=== PATIENT | female | born 1980 | race Caucasian/White ===

== ENCOUNTER 2016-10-01 23:19 | Emergency (ER) | payer OTHER ==
[~2016-10-01] VITALS: Ht 172.7 cm; Wt 72.6 kg
--- NOTE | 2016-10-01 23:33 | NUR ---
HOME MEDS PT DENIES ANY HOME MEDS ON A DAILY BASIS
[2016-10-01] MEDS ORDERED: ZOFRAN IV STA (23:44)
[2016-10-01] MEDS ORDERED: LOMOTIL PO STA (23:44)
[2016-10-01] MEDS ORDERED: NS 1000ML 1,000 ML ONE ×2 (23:47)
[2016-10-01] MEDS ORDERED: ZOFRAN ONE ×2 (23:47)
[2016-10-01] MEDS ORDERED: LOMOTIL ONE ×2 (23:48)
--- NOTE | 2016-10-01 23:48 | ER.PDOC ---
General Chief Complaint: Abdomen Pain Stated Complaint: DIARRHEA, ABD PAIN Time seen by MD: 23:45 Source: patient Exam Limitations: no limitations History of Present Illness Initial Comments Nausea and diarrhea today Severity/Quality: severe Associated Symptoms (diarrhea): copious, watery Allergies: Coded Allergies: No Known Allergies (Unverified , 10/01/16) Home Meds No Active Prescriptions or Reported Meds Vital Signs First Vital Signs Date Time Temp Pulse Resp B/P Pulse Ox O2 Delivery O2 Flow Rate FiO2 10/01/16 23:25 98.6 90 12 99 10/01/16 23:31 108/60 Last Vital Signs Date Time Temp Pulse Resp B/P Pulse Ox O2 Delivery O2 Flow Rate FiO2 10/02/16 01:47 82 16 128/61 98 10/01/16 23:31 98.6 Past Medical History Medical History: no pertinent history Surgical History: tonsillectomy LMP (females 10-50): this week Social History Smoking: non-smoker Alcohol Use: none Drug Use: none Constitutional: no symptoms reported EENTM: no symptoms reported Respiratory: no symptoms reported Cardiovascular: no symptoms reported Gastrointestinal: see HPI Genitourinary: no symptoms reported Musculoskeletal: no symptoms reported Skin: no symptoms reported All Other Systems: Reviewed and Negative Physical Exam General Appearance: No Apparent Distress, WD/WN HEENT: PERRL/EOMI, Normal ENT Inspection, TMs Normal, Pharynx Normal Neck: Non-Tender, Full Range of Motion, Supple, Normal Inspection Respiratory: chest non-tender, lungs clear, normal breath sounds, no respiratory distress, no accessory muscle use Cardiovascular: Normal Peripheral Pulses, Regular Rate, Rhythm, No Edema, No Gallop, No JVD, No Murmur Gastrointestinal: Normal Bowel Sounds, Non Tender, Soft Back: Normal Inspection, No CVA Tenderness, No Vertebral Tenderness Extremities: Normal Range of Motion, Non-Tender, Normal Inspection, No Pedal Edema, No Calf Tenderness, Normal Capillary Refill, Pelvis Stable 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0) Neutrophils (%) (Auto) 80.0% (41.0-85.0) Lymphocytes (%) (Auto) 13.3% (24.0-44.0) Monocytes (%) (Auto) 5.7% (5.0-12.0) Neutrophils # (Auto) 5.310^3/uL (1.8-7.7) Lymphocytes # (Auto) 0.910^3/uL (1.0-4.8) Monocytes # (Auto) 0.410^3/uL (0.3-0.8) Absolute Immature Granulocyte (auto 0.0110^3 u/L (0-2) Eosinophils % 0.5% (0.0-5.0) Basophils % 0.3% (0.0-0.2) Basophils # 0.010^3/uL (0.0-0.1) Eosinophil Count 0.010^3/uL (0.0-0.2) Sodium Level 140mmol/L (132-145) Potassium Level 3.4mmol/L (3.6-5.2) Chloride Level 106.0mmol/L (96-109) Carbon Dioxide Level 21.5mmol/L (20.0-32) Anion Gap 15.9 Blood Urea Nitrogen 7mg/dL (7-18) Creatinine 0.69mg/dL (0.59-1.40) Estimat Glomerular Filtration Rate >60 BUN/Creatinine Ratio 10.0 Glucose Level 92mg/dL (70-110) Calculated Osmolality 287.5 Calcium Level 8.3mg/dL (8.4-10.5) Total Bilirubin 0.6mg/dL (0.2-1.0) Aspartate Amino Transf (AST/SGOT) 35U/L (0-35) Alanine Aminotransferase (ALT/SGPT) 43U/L (12-78) Alkaline Phosphatase 92U/L (50-136) Total Protein 7.4g/dL (6.4-8.2) Albumin 3.7g/dL (3.4-5.0) Globulin 3.7 Serum HCG, Qualitative Negative (NEGATIVE) Percent Immature Gran (Cell Imm) 0.20% (0.00-0.50) Stool for White Cells None seen (NS) Clostridium difficile Screen Negative Clostridium Difficile Toxin A & B Negative Administered Medications Medications (Trade) Dose Ordered Sig/Caterina Route PRN Reason Start Time Stop Time Status Last Admin Dose Admin Ondansetron HCl (Zofran) 4 mg STAT STAT IV 10/01/16 23:44 10/01/16 23:46 DC 10/02/16 00:42 Diphenoxylate HCl/ Atropine (Lomotil) 1 each STAT STAT PO 10/01/16 23:44 10/01/16 23:46 DC 10/02/16 00:49 Ketorolac Tromethamine (Toradol) 30 mg STAT STAT IV 10/02/16 01:42 10/02/16 01:43 DC 10/02/16 01:46 Progress Progress Feeling better. Departure Time of Disposition: 02:13 Disposition: 01 HOME, SELF-CARE Impression: Primary Impression: Acute diarrhea Condition: Stable Referrals: VEENA LEZAMA PA-C (PCP) PRIMARY CARE PROVIDER Additional Instructions: Lomotil Push fluids Rest home today and return to work on 10/03/16 F/U with your PCP in 2-3 days Scripts No Active Prescriptions or Reported Meds KORY BACH MD Oct 01, 2016 23:48
[2016-10-02] MEDS ORDERED: MISC MC ONE
--- NOTE | 2016-10-02 00:07 | NUR ---
UNSUCCESSFUL IV ATTEMPT X 2
--- NOTE | 2016-10-02 00:30 | NUR ---
IV ATTEMPT MELI, MINE SUP, WITH PT FOR IV AND LAB COLLECTION, PT HAS BEEN TO THE BATHROOM MULTIPLE TIMES FOR DIARRHEA,
--- NOTE | 2016-10-02 00:40 | NUR ---
NS ONE LITER IV INFUSING AT 500CC/HR
[2016-10-02 01:06] LABS: BASOPHIL % 0.3 % (0.0-0.2); EOSINOPHIL % 0.5 % (0.0-5.0); HEMATOCRIT 42.9 % (36.0-46.0); HEMOGLOBIN 14.8 g/dL (12.0-15.0); LYMPHOCYTES # 0.9 10^3/uL (1.0-4.8); LYMPHOCYTES % 13.3 % (24.0-44.0); MEAN CELL HGB 30.8 pg (26-34); MEAN CELL HGB CONCENTRATION 34.5 g/dL (33-37); MEAN CORP VOLUME 89.4 fL (78-100); MEAN PLATELET VOLUME 10.4 fL (7.8-11.0); MONOCYTES # 0.4 10^3/uL (0.3-0.8); MONOCYTES % 5.7 % (5.0-12.0); NEUTROPHIL # 5.3 10^3/uL (1.8-7.7); RED BLOOD CELL 4.8 10^6/uL (4.00-5.20); RED CELL DISTRIBUTION WIDTH 12.3 % (11.5-14.5); WHITE BLOOD CELL 6.6 10^3/uL (4.5-11.0)
[2016-10-02 01:17] LABS: ALANINE AMINOTRANSFERASE 43 U/L (12-78); ALBUMIN 3.7 g/dL (3.4-5.0); ALKALINE PHOSPHATASE 92 U/L (50-136); ANION GAP 15.9; ASPARTATE AMINO TRANSFERASE 35 U/L (0-35); CALCIUM 8.3 mg/dL (8.4-10.5); CARBON DIOXIDE 21.5 mmol/L (20.0-32); CREATININE SERUM 0.69 mg/dL (0.59-1.40); GLUCOSE 92 mg/dL (70-110)
[2016-10-02] MEDS ORDERED: TORADOL IV STA (01:42)
[2016-10-02] MEDS ORDERED: TORADOL ONE ×2 (01:42)
--- NOTE | 2016-10-02 01:47 | PRM.ACF1 ---
Admission Criteria Forms VOMITING Clinical Indications for Admission to Inpatient Care ( Place 'X' for any and all applicable criteria): Admission is indicated for ANY ONE of the following(1)(2)(3): [X]I. Inpatient admission required rather than observation care because of ANY ONE of the following: [ ]i) Hemodynamic instability that is severe or persistent [X]ii) Vomiting that is severe or persistent [ ]iii) Severe electrolyte abnormalities requiring inpatient care [ ]iv) Severe pain requiring acute inpatient management [ ]v) High fever or infection requiring inpatient admission as indicated by ANY ONE of the following(7)(8): [ ]1) Appropriate outpatient or observation care antimicrobial treatment unavailable, not effective, or not feasible [ ]2) Documented bacteremia [ ]3) Temp >104.9 degrees F (40.5 degrees C) (oral) [ ]4) Temp >103.1 degrees F (39.5 C) (oral) or <96.8 degrees F (36 C) (rectal) that does not respond to all emergency treatment measures [ ]vi) Acute renal failure [ ]vii) IV fluid to replace significant ongoing losses (greater than 3 L/m2 per day) [ ]viii) Parenteral nutrition regimen that must be implemented on inpatient basis [ ]ix) Other condition, treatment or monitoring requiring inpatient admission [ ]II. Complete or partial gastrointestinal obstruction [ ]III. Other cause of vomiting requiring hospitalization (eg, poisoning, increased intracranial pressure) [ ]IV. Vomiting due to significant metabolic derangement (eg, severe hypercalcemia, diabetic ketoacidosis) Extended stay beyond goal length of stay may be needed for(1)(4): [ ]a) Severe vomiting [ ]b) Persistent vomiting, vital sign changes, severe electrolyte imbalance , or diagnosed cause of vomiting that requires continued hospitalization (eg, gastrointestinal obstruction , increased intracranial pressure) [ ]c) Surgery to treat identified causes of vomiting (eg, bowel obstruction , intracranial process) [ ]d) Comorbid illness that requires inpatient care (eg, acute heart failure , renal failure) [ ]e) Need for inpatient endoscopy The original [facility] ([facility]3] [employer] content created by [employer] has been revised. The portions of the content which have been revised are identified through the use of italic text or in bold, and [facility]3] [employer] has neither reviewed nor approved the modified material. All other unmodified content is copyright [facility]3] [employer]. Please see references footnoted in the original [facility] edition 2016 Is A[facility]/Dona's added/comple: YES SHYAM BASS [facility] Oct 02, 2016 01:47
--- NOTE | 2016-10-02 02:44 | NUR ---
DISCHARGE IV ONE LITER NS INFUSED, IV DC'D TIP INTACT, PT STATES SHE IS FEELING BETTER AND IS READY TO GO HOME. DISCHARGE INSTRUCTIONS AND PRESCRIPTION MEDICATION DISCUSSED. PT AND MOTHER VERBALIZED UNDERSTANDING. ENCOURAGED TO RETURN FOR ANY CONCERNS.
== END 2016-10-02 02:44 | disposition home or self-care (01) ==
LOC: ER 23:19
DX: R19.7 Diarrhea, unspecified (principal); R11.0 Nausea
CPT/HCPCS: 36415; 80053; 84703; 85025; 87045; 87230 ×2; 89055; 96361; 96374; 96375; 99285; J1885 ×2; J2405; J7030 ×2; 81025

== ENCOUNTER → 2018-08-16 | Outpatient (CLI) | payer OTHER ==
--- NOTE | 2018-08-16 11:58 | DIREP ---
PROCEDURE:US PELVIS COMPLETE COMPARISON:None. INDICATIONS:LLQ PAIN TECHNIQUE:Pelvic ultrasound using transabdominal technique. Endovaginal images were also obtained for better assessment of the uterus and adnexa. FINDINGS: LMP: Unknown. UTERUS:Size is 8.6 x 6.3 x 4.1 cm. The myometrium is homogeneous. ENDOMETRIUM:The intrauterine device appears to be properly placed within the fundal portion of the endometrium. RIGHT OVARY:Normal appearance. Size is 3.9 x 2.6 x 1.9 cm. LEFT OVARY:Size is 3.8 x 3.1 x 2.8 cm. Cyst noted measuring 3.4 x 2.3 x 2.5 cm (cyst within a cyst appearance). CUL-DE-SAC:Normal. OTHER:Negative. CONCLUSION:IUD in the fundal portion of the endometrium. There is a cyst with a daughter cyst in the left ovary. While this is probably a complex cyst and statistically an ectopic would be unlikely correlation with test is recommended to exclude other possibilities such as ectopic. Dictated by: RAJWINDER Physician on 08/16/2018 at 10:33 AM ac
== END | disposition home or self-care (01) ==
LOC: RAD 01:10
PROVIDERS: ATTEND Obstetrics & Gynecology
DX: N83.202 Unspecified ovarian cyst, left side (principal)
CPT/HCPCS: 76830; 76856

== ENCOUNTER 2019-02-03 10:38 | Emergency (ER) | payer OTHER ==
[~2019-02-03] VITALS: Ht 172.7 cm; Wt 74.8 kg
[2019-02-03 11:06] VITALS: BP 153/70
[2019-02-03] MEDS ORDERED: ZOFRAN IV STA (11:06)
[2019-02-03] MEDS ORDERED: LACTATED RINGERS 1,000 ML IV STA (11:06)
[2019-02-03] MEDS ORDERED: TORADOL IV STA (11:09)
--- NOTE | 2019-02-03 11:14 | ER.PDOC ---
General Chief Complaint: Nausea,Vomiting,Diarrhea Stated Complaint: POSSIBLE FOOD POISIONING Time seen by MD: 11:09 Source: patient Exam Limitations: no limitations History of Present Illness Initial Comments Nausea/vomiting/diarrhea for 2 days. Vomited once and no diarrhea today. Severity/Quality: moderate Associated Symptoms (vomiting): freq vomitng Associated Symptoms (diarrhea): mild Allergies: Coded Allergies: No Known Allergies (Unverified , 10/01/16) Home Meds No Active Prescriptions or Reported Meds Vital Signs First Vital Signs Date Time Temp Pulse Resp B/P (MAP) Pulse Ox O2 Delivery O2 Flow Rate FiO2 02/03/19 10:50 98.2 74 17 99 Room Air 02/03/19 11:06 153/70 (97) Last Vital Signs Date Time Temp Pulse Resp B/P (MAP) Pulse Ox O2 Delivery O2 Flow Rate FiO2 02/03/19 11:06 98.2 74 17 153/70 (97) 99 Room Air Past Medical History Medical History: no pertinent history Surgical History: tonsillectomy LMP (females 10-50): IUD Social History Smoking: non-smoker Alcohol Use: none Drug Use: none Constitutional: no symptoms reported EENTM: no symptoms reported Respiratory: no symptoms reported Cardiovascular: no symptoms reported Gastrointestinal: see HPI All Other Systems: Reviewed and Negative Physical Exam General Appearance: No Apparent Distress, WD/WN Neck: Non-Tender, Full Range of Motion, Supple, Normal Inspection Respiratory: chest non-tender, lungs clear, normal breath sounds, no respiratory distress, no accessory muscle use Cardiovascular: Normal Peripheral Pulses, Regular Rate, Rhythm, No Edema, No Gallop, No JVD, No Murmur Gastrointestinal: Normal Bowel Sounds, Non Tender, Soft Back: Normal Inspection, No CVA Tenderness, No Vertebral Tenderness Extremities: Normal Range of Motion, Non-Tender, Normal Inspection, No Pedal Ed cristian, No Calf Tenderness, Normal Capillary Refill, Pelvis Stable 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, No Motor/Sensory Deficits, Alert, Normal Mood/Affect, Oriented x 3 Skin: Normal Color, Warm/Dry Results/Orders Results/Orders Orders - KORY BACH MD Cbc With Auto Diff (02/03/19 11:06) Comprehensive Metabolic Panel (02/03/19 11:06) Urinalysis (02/03/19 11:06) Hcg Urine (02/03/19 11:06) Ringer's Solution,Lactated (Lactated Rin (02/03/19 11:06) Ondansetron Hcl (Zofran) (02/03/19 11:06) Ketorolac Tromethamine (Toradol) (02/03/19 11:09) Ringer's Solution,Lactated (Lactated Rin (02/03/19 11:22) Ondansetron Hcl (Zofran) (02/03/19 11:22) Urine Culture (02/03/19 10:52) Vital Signs Date Time Temp Pulse Resp B/P (MAP) Pulse Ox O2 Delivery O2 Flow Rate FiO2 02/03/19 11:06 98.2 74 17 153/70 (97) 99 Room Air 02/03/19 10:50 98.2 74 17 02/03/19 10:50 98.2 74 17 99 Room Air Administered Medications Medications (Trade) Dose Ordered Sig/Caterina Route PRN Reason Start Time Stop Time Status Last Admin Dose Admin Ketorolac Tromethamine (Toradol) 30 mg STAT STAT IV 02/03/19 11:09 02/03/19 11:10 UNV 02/03/19 11:33 30 MG Ondansetron HCl (Zofran) 4 mg STAT STAT IV 02/03/19 11:06 02/03/19 11:09 DC 02/03/19 11:33 4 MG Laboratory Tests Test 02/03/19 10:52 02/03/19 11:17 Urine Collection Type VOID Urine Color YELLOW (YELLOW) Urine Appearance SLIGHTLY CLOUDY (CLEAR) Urine Bilirubin NEGATIVE MG/DL (NEGATIVE) Urine Ketones 5 mg/dL (NEGATIVE) H Urine Specific [place] 1.025 (1.005-1.035) Urine pH 5 (5.0-6.0) Urine Protein 15 mg/dL (NEGATIVE) H Urine Urobilinogen NORMAL (NEGATIVE) Urine Nitrate NEGATIVE (NEGATIVE) Urine Leukocyte Esterase 25 /uL TRACE (NEGATIVE) Urine Blood 25 1+ (NEGATIVE) H Urine RBC 0-2 RBC/HPF (NONE SEEN) Urine WBC 0-2 WBC/HPF (0-2) Urine Squamous Epithelial Cells FEW #/HPF (FEW) Urine Amorphous Sediment LARGE (NONE SEEN) Urine Bacteria FEW (NONE SEEN) H Urine Glucose NORMAL (NEGATIVE) Urine HCG, Qualitative NEGATIVE (NEGATIVE) White Blood Count 8.0 10^3/uL (4.5-11.0) Red Blood Count 4.56 10^6/uL (4.00-5.20) Hemoglobin 14.5 g/dL (12.0-15.0) Hematocrit 42.5 % (36.0-46.0) Mean Corpuscular Volume 93.2 fL (78-100) Mean Corpuscular Hemoglobin 31.8 pg (26-34) Mean Corpuscular Hemoglobin Concent 34.1 g/dL (33-37) Red Cell Distribution Width 12.3 % (11.5-14.5) Platelet Count 211 10^3/uL (150-400) Mean Platelet Volume 10.8 fL (7.8-11.0) Neutrophils (%) (Auto) 74.1 % (41.0-85.0) Lymphocytes (%) (Auto) 19.8 % (24.0-44.0) L Monocytes (%) (Auto) 5.0 % (5.0-12.0) Neutrophils # (Auto) 5.9 10^3/uL (1.8-7.7) Lymphocytes # (Auto) 1.6 10^3/uL (1.0-4.8) Monocytes # (Auto) 0.4 10^3/uL (0.3-0.8) Absolute Immature Granulocyte (auto 0.01 10^3 u/L (0-2) Immature Granulocytes % 0.10 % (0.00-0.50) Eosinophils % 0.9 % (0.0-5.0) Basophils % 0.1 % (0.0-0.2) Basophils # 0.0 10^3/uL (0.0-0.1) Eosinophil Count 0.1 10^3/uL (0.0-0.2) Sodium Level 143 mmol/L (132-145) Potassium Level 3.3 mmol/L (3.6-5.2) L Chloride Level 104.0 mmol/L (96-109) Carbon Dioxide Level 23.6 mmol/L (20.0-32) Anion Gap 18.7 Blood Urea Nitrogen 11 mg/dL (7-18) Creatinine 0.86 mg/dL (0.59-1.40) Estimated GFR () 90.3 (>/=60) BUN/Creatinine Ratio 12.0 Glucose Level 104 mg/dL (70-110) Calcium Level 9.5 mg/dL (8.4-10.5) Total Bilirubin 1.0 mg/dL (0.2-1.0) Aspartate Amino Transferase (AST) 13 U/L (0-35) Alanine Aminotransferase (ALT) 12 U/L (12-78) Alkaline Phosphatase 68 U/L (50-136) Total Protein 7.8 g/dL (6.4-8.2) Albumin 4.3 g/dL (3.4-5.0) Globulin 3.5 Departure Time of Disposition: 13:22 Disposition: 01 HOME, SELF-CARE Impression: Primary Impression: Gastroenteritis Condition: Improved Referrals: KYLE JAMES (PCP) PRIMARY CARE PROVIDER Additional Instructions: Zofran Start feeding with clear liquids and advance diet as tolerated F/U with PCP in 2-3 days Scripts No Active Prescriptions or Reported Meds Duration or Time Spent with Pa: 45 mins KORY BACH MD Feb 03, 2019 11:14
[2019-02-03 11:21] LABS: BASOPHIL % 0.1 % (0.0-0.2); EOSINOPHIL # 0.1 10^3/uL (0.0-0.2); EOSINOPHIL % 0.9 % (0.0-5.0); HEMOGLOBIN 14.5 g/dL (12.0-15.0); LYMPHOCYTES # 1.6 10^3/uL (1.0-4.8); LYMPHOCYTES % 19.8 % (24.0-44.0); MEAN CELL HGB 31.8 pg (26-34); MEAN CELL HGB CONCENTRATION 34.1 g/dL (33-37); MEAN CORP VOLUME 93.2 fL (78-100); MEAN PLATELET VOLUME 10.8 fL (7.8-11.0); MONOCYTES # 0.4 10^3/uL (0.3-0.8); NEUTROPHIL # 5.9 10^3/uL (1.8-7.7); NEUTROPHILS % 74.1 % (41.0-85.0); RED CELL DISTRIBUTION WIDTH 12.3 % (11.5-14.5)
[2019-02-03] MEDS ORDERED: TORADOL ONE (11:22)
[2019-02-03] MEDS ORDERED: ZOFRAN ONE (11:22)
[2019-02-03] MEDS ORDERED: LACTATED RINGERS 1,000 ML ONE (11:22)
[2019-02-03 11:37] LABS: CALCIUM 9.5 mg/dL (8.4-10.5); CARBON DIOXIDE 23.6 mmol/L (20.0-32)
[2019-02-03 11:50] LABS: BILIRUBIN,URINE NEGATIVE (NEGATIVE); UROBILINOGEN,URINE NORMAL (NEGATIVE)
[2019-02-03 11:58] LABS: APPEARANCE,URINE SLIGHTLY CLOUDY (CLEAR); UA COLOR YELLOW (YELLOW)
[2019-02-03 12:00] VITALS: BP 105/47
[2019-02-03 13:00] VITALS: BP 102/62
[2019-02-03 13:30] VITALS: BP 108/64
[2019-02-03 13:43] VITALS: BP 108/64
== END 2019-02-03 13:31 | disposition home or self-care (01) ==
LOC: ER 10:38
DX: K52.9 Noninfective gastroenteritis and colitis, unspecified (principal); Z79.899 Other long term (current) drug therapy
CPT/HCPCS: 36415; 80053; 81000; 81025; 85025; 87086; 96361; 96374; 96375; 99284; J1885; J2405; J7120

== ENCOUNTER 2019-09-23 18:46 | Emergency (ER) | payer OTHER ==
[~2019-09-23] VITALS: Ht 172.7 cm; Wt 72.6 kg
[2019-09-23 19:26] VITALS: BP 119/93
[2019-09-23 19:29] VITALS: BP 119/93
[2019-09-23 19:41] LABS: BILIRUBIN,URINE NEGATIVE (NEGATIVE); UROBILINOGEN,URINE NORMAL (NEGATIVE)
[2019-09-23 19:49] LABS: APPEARANCE,URINE HAZY (CLEAR); UA COLOR STRAW (YELLOW)
[2019-09-23] MEDS ORDERED: ROCEPHIN ONE (20:02)
[2019-09-23] MEDS ORDERED: LIDOCAINE 1% VIAL ONE (20:02)
[2019-09-23] MEDS ORDERED: ROCEPHIN IM STA (20:03)
--- NOTE | 2019-09-23 20:07 | ER.PDOC ---
General Chief Complaint: Female Urogenital Problems Stated Complaint: UTI SYMPTOMS Time seen by MD: 20:04 Source: patient Exam Limitations: no limitations History of Present Illness Initial Comments UTI symptoms for past few days. No fever or chills. Severity/Quality: moderate Associated Symptoms: dysuria, urinary frequency Allergies: Coded Allergies: No Known Allergies (Unverified , 10/01/16) Home Meds No Active Prescriptions or Reported Meds Past Medical History Medical History: no pertinent history Surgical History: tonsillectomy Social History Alcohol Use: none Drug Use: none Review of Systems Constitutional: no symptoms reported Respiratory: no symptoms reported Cardiovascular: no symptoms reported Gastrointestinal: no symptoms reported Genitourinary: see HPI All Other Systems: Reviewed and Negative Physical Exam General Appearance: No Apparent Distress, WD/WN Neck: nml inspection, non-tender Cardiovascular/Respiratory: Regular Rate, Rhythm, No M/R/G, Normal Peripheral Pulses, No JVD, Normal Breath Sounds, No Respiratory Distress Abdomen: Normal Bowel Sounds, Non Tender, Soft, No Organomegaly, No Pulsatile Mass Back: nml inspection Extremities: Normal Range of Motion, Non-Tender, Normal Inspection, No Pedal Edema, No Calf Tenderness, Normal Capillary Refill 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, No Motor/Sensory Deficits, Alert, Normal Mood/Affect, Oriented x 3 Skin: Normal Color, Warm/Dry Results/Orders Results/Orders Orders - KORY BACH MD Urinalysis (09/23/19 19:37) Hcg Urine (09/23/19 19:37) Urine Culture (09/23/19 19:23) Vital Signs Date Time Temp Pulse Resp B/P (MAP) Pulse Ox O2 Delivery O2 Flow Rate FiO2 09/23/19 19:29 98.1 80 16 119/93 (102) 98 09/23/19 19:29 98.1 80 16 09/23/19 19:26 98.1 80 16 98 Laboratory Tests Test 09/23/19 19:23 Urine Collection Type VOID Urine Color STRAW (YELLOW) Urine Appearance HAZY (CLEAR) H Urine Bilirubin NEGATIVE MG/DL (NEGATIVE) Urine Ketones NEGATIVE (NEGATIVE) Urine Specific [place] 1.005 (1.005-1.035) Urine pH 6 (5.0-6.0) Urine Protein NEGATIVE (NEGATIVE) Urine Urobilinogen NORMAL (NEGATIVE) Urine Nitrate NEGATIVE (NEGATIVE) Urine Leukocyte Esterase 500/uL 2+ (NEGATIVE) Urine Blood 250 4+ (NEGATIVE) H Urine RBC 5-10 RBC/HPF (NONE SEEN) H Urine WBC TNTC WBC/HPF (0-2) H Urine Squamous Epithelial Cells FEW #/HPF (FEW) Urine Uric Acid Crystals RARE (NONE SEEN) Urine Bacteria RARE (NONE SEEN) Urine Glucose NORMAL (NEGATIVE) Urine HCG, Qualitative NEGATIVE (NEGATIVE) Departure Time of Disposition: 20:05 Disposition: 01 HOME, SELF-CARE Impression: Primary Impression: UTI (urinary tract infection) Condition: Stable Referrals: KYLE JAMES (PCP) PRIMARY CARE PROVIDER Additional Instructions: Macrobid F/U with your PCP in 1 week Return to ED if worsening symptoms or concerns Scripts No Active Prescriptions or Reported Meds Duration or Time Spent with Pa: 20 mins Problem Qualifiers Primary Impression: UTI (urinary tract infection) Urinary tract infection type: site unspecified Hematuria presence: with hematuria Qualified Codes: N39.0 - Urinary tract infection, site not specified; R31.9 - Hematuria, unspecified KORY BACH MD Sep 23, 2019 20:07
== END 2019-09-23 20:30 | disposition home or self-care (01) ==
LOC: ER 18:46
DX: N39.0 Urinary tract infection, site not specified (principal)
CPT/HCPCS: 81000; 81025; 87086; 96372; 99283; J0696; J2001

== ENCOUNTER → 2020-10-22 | Outpatient (CLI) | payer BC, OTHER ==
[2020-10-22 06:36] LABS: BASOPHIL % 0.5 % (0.0-0.2); EOSINOPHIL # 0.2 10^3/uL (0.0-0.2); EOSINOPHIL % 2.5 % (0.0-5.0); LYMPHOCYTES # 2.45 10^3/uL1 (1.0-4.8); MEAN CORP HGB 32.2 pg (26-34); MONOCYTES # 0.4 10^3/uL (0.3-0.8); MONOCYTES % 6.5 % (5.0-12.0); NEUTROPHIL # 3.4 10^3/uL (1.8-7.7); NEUTROPHILS % 52.3 % (41.0-85.0); PLATELET COUNT 225 10^3/uL (150-400); RED CELL DISTRIBUTION WIDTH 12.7 % (11.5-14.5)
[2020-10-22 07:07] LABS: CALCIUM 8.9 mg/dL (8.4-10.5); CARBON DIOXIDE 23.8 mmol/L (20.0-32)
--- NOTE | 2020-10-22 10:25 | DIREP ---
PROCEDURE:XRAY ELBOW 2VWS-RT COMPARISON:[facility], , XRAY WRIST MIN 3VW-RT, 10/22/2020, 09:58 AM. INDICATIONS:M25.50 PAIN IN JOINT FINDINGS: BONES:Normal. JOINTS:Normal. No displaced anterior or posterior fat pads. SOFT TISSUES:Normal. OTHER:Normal. CONCLUSION:Normal examination. Dictated by: Oc Webster III, MD on 10/22/2020 at 10:23 AM
--- NOTE | 2020-10-22 10:26 | DIREP ---
PROCEDURE:XRAY WRIST MIN 3VW-RT COMPARISON:None. INDICATIONS:M25.50 PAIN IN JOINT FINDINGS: BONES:Normal. JOINTS:Normal. SOFT TISSUES:Normal. OTHER:No additional findings. CONCLUSION:Normal examination. Dictated by: Oc Webster III, MD on 10/22/2020 at 10:23 AM
--- NOTE | 2020-10-22 10:26 | DIREP ---
PROCEDURE:XRAY HAND MIN 3 VW-RT COMPARISON:None. INDICATIONS:M25.50 PAIN IN JOINT FINDINGS: BONES:Normal. JOINTS:Normal. SOFT TISSUES:Normal. OTHER:No additional findings. CONCLUSION:Normal examination. Dictated by: Oc Webster III, MD on 10/22/2020 at 10:24 AM
== END | disposition home or self-care (01) ==
LOC: LAB 06:10
PROVIDERS: ATTEND Nurse Practitioner Adult Health
DX: F43.22 Adjustment disorder with anxiety (principal); M25.50 Pain in unspecified joint; Z68.26 Body mass index [BMI] 26.0-26.9, adult; Z79.899 Other long term (current) drug therapy
CPT/HCPCS: 36415; 80053; 80061; 82306; 82607; 82746; 84436; 84439; 84443; 85025; 85651; 86140; 86225; 86431; 73070-RT; 73110-RT; 73130-RT

== ENCOUNTER → 2021-01-31 | Outpatient (CLI) | payer OTHER ==
[2021-01-31 15:37] LABS: BASOPHIL % 0.4 % (0.0-0.2); EOSINOPHIL # 0.1 10^3/uL (0.0-0.2); EOSINOPHIL % 1.8 % (0.0-5.0); LYMPHOCYTES # 2.37 10^3/uL1 (1.0-4.8); LYMPHOCYTES % 34.8 % (24.0-44.0); MEAN CORP HGB 32.4 pg (26-34); MONOCYTES # 0.5 10^3/uL (0.3-0.8); MONOCYTES % 7.9 % (5.0-12.0); NEUTROPHIL # 3.8 10^3/uL (1.8-7.7); PLATELET COUNT 191 10^3/uL (150-400); RED CELL DISTRIBUTION WIDTH 12.4 % (11.5-14.5)
--- NOTE | 2021-01-31 15:38 | DIREP ---
PROCEDURE:XRAY FOOT MIN 3 VWS-LT COMPARISON:None. INDICATIONS:M79.672 PAIN IN LEFT FOOT FINDINGS: BONES:Normal. JOINTS:On the AP view, there is mild lateral deviation of the 4th digit, which may be simply positional. SOFT TISSUES:Normal. OTHER:No additional findings. CONCLUSION:Normal examination. Dictated by: Oc Webster III, MD on 01/31/2021 at 02:34 PM Read in [place]
[2021-01-31 15:55] LABS: CALCIUM 8.3 mg/dL (8.4-10.5); CARBON DIOXIDE 25.1 mmol/L (20.0-32)
== END | disposition home or self-care (01) ==
LOC: LAB 15:14
PROVIDERS: ATTEND Nurse Practitioner Adult Health
DX: M79.672 Pain in left foot (principal)
CPT/HCPCS: 36415; 80053; 84550; 85025; 73630-LT

== ENCOUNTER → 2021-12-14 | Outpatient (CLI) | payer OTHER | END | disposition home or self-care (01) | LOC: NPLAB 12:16 | PROVIDERS: ATTEND Nurse Practitioner Adult Health | DX: Z20.822 Contact with and (suspected) exposure to COVID-19 (principal) | CPT/HCPCS: 87426 ==

== ENCOUNTER 2022-02-21 10:46 | Emergency (ER) | payer OTHER ==
[~2022-02-21] VITALS: Ht 172.7 cm; Wt 77.1 kg
[2022-02-21 10:46] VITALS: BP 133/75
--- NOTE | 2022-02-21 10:46 | NUR ---
ARRIVAL PATIENT ARRIVED TO ED5 AMBULATORY, C/O LEFT FOOT INJURY AND PAIN FROM GETTING HIT IN THE LEFT FOOT BY A BASEBALL, ATTEMPTED TO TREAT HERSELF AT HOME, CAME TO THE ED FOR EVAL, VITAL SIGNS TAKEN AND DOCTOR NOTIFIED OF PATIENT'S ARRIVAL.
[2022-02-21 11:01] VITALS: BP 133/75
--- NOTE | 2022-02-21 11:49 | DIREP ---
PROCEDURE:XRAY FOOT MIN 3 VWS-LT COMPARISON:[facility], , XRAY FOOT MIN 3 VWS-LT, 01/31/2021, 03:21 PM. INDICATIONS:Pain/injury FINDINGS: BONES:Normal. JOINTS:Normal. SOFT TISSUES:Normal. OTHER:No additional findings. CONCLUSION:Normal left foot. No change from previous study. Dictated by: Victoriano Simms M.D. on 02/21/2022 at 11:39 AM
--- NOTE | 2022-02-21 11:54 | ER.PDOC ---
General Chief Complaint: Extremities Stated Complaint: LEFT FOOT INJURY Time seen by MD: 11:50 Source: patient Exam Limitations: no limitations History of Present Illness Initial Comments Left foot pain. Patient was hit with a baseball yesterday. Onset: yesterday Severity: moderate Modifying Factors: pain on movement Allergies: Coded Allergies: No Known Allergies (Unverified , 10/01/16) Home Meds No Active Prescriptions or Reported Meds Past Medical History Medical History: no pertinent history Surgical History: tonsillectomy Family History Significant Family History: no pertinent family hx Social History Smoking: non-smoker Alcohol Use: rarely Drug Use: none Review of Systems Constitutional: no symptoms reported EENTM: no symptoms reported Respiratory: no symptoms reported Cardiovascular: no symptoms reported Gastrointestinal: no symptoms reported Musculoskeletal: see HPI All Other Systems: Reviewed and Negative Physical Exam General Appearance: Alert, No Apparent Distress Foot: tenderness (Left foot without swelling or deformity.) Ankle: nml inspection, non-tender, nml ROM, no joint swelling, skin intact Gait: normal Neuro: sensation nml, motor nml Vascular: no vascular compromise Tendons: tendon function nml Leg/Knee/Thigh: uninjured above ankle Skin: warm/dry Head/ENT: nml inspection, pharynx nml Neck/Back: nml inspection, non-tender Resp/CVS: no resp distress Abdomen: non-tender, no organomegaly Results/Orders Results/Orders Orders - KORY BACH MD Xr Foot Lt (02/21/22 11:01) Vital Signs Date Time Temp Pulse Resp B/P (MAP) Pulse Ox O2 Delivery O2 Flow Rate FiO2 02/21/22 11:01 98.4 80 18 02/21/22 11:01 98.4 80 18 100 02/21/22 11:01 98.4 80 18 133/75 (94) 100 Room Air* 0 21 02/21/22 10:46 98.4 80 18 133/75 (94) 100 Room Air* 0 21 Progress Progress X-rays of left foot shows no acute osseous abnormality. ER DEPART Departure Time of Disposition: 11:52 Disposition: 01 HOME / SELF CARE / HOMELESS Impression: Primary Impression: Contusion of foot, left Additional Impression: Foot pain, left Condition: Stable Referrals: KYLE JAMES (PCP) PRIMARY CARE PROVIDER Additional Instructions: Ice Ibuprofen Follow-up with your PCP in 1 week Return to ED if worsening or concerns Scripts No Active Prescriptions or Reported Meds Duration or Time Spent with Pa: 10 min Problem Qualifiers Primary Impression: Contusion of foot, left Encounter type: initial encounter Qualified Codes: S90.32XA - Contusion of left foot, initial encounter KORY BACH MD Feb 21, 2022 11:54
[2022-02-21 11:57] VITALS: BP 133/75
== END 2022-02-21 11:58 | disposition home or self-care (01) ==
LOC: ER 10:46
DX: S90.32XA Contusion of left foot, initial encounter (principal); M79.672 Pain in left foot; W21.03XA Struck by baseball, initial encounter; Y93.89 Activity, other specified; Y92.89 Other specified places as the place of occurrence of the external cause; Y99.8 Other external cause status
CPT/HCPCS: 99283; 73630-LT

== ENCOUNTER → 2022-04-17 | Outpatient (CLI) | payer OTHER | END | disposition home or self-care (01) | LOC: NPLAB 09:09 | PROVIDERS: ATTEND Nurse Practitioner Adult Health | DX: R30.0 Dysuria (principal) | CPT/HCPCS: 87077; 87086; 87186 ==

== ENCOUNTER → 2022-12-27 | Outpatient (CLI) | payer OTHER ==
[2022-12-27 08:11] LABS: BASOPHIL % 0.3 % (0.0-0.2); EOSINOPHIL # 0.2 10^3/uL (0.0-0.2); EOSINOPHIL % 2.6 % (0.0-5.0); LYMPHOCYTES # 2.85 10^3/uL1 (1.0-4.8); LYMPHOCYTES % 47.1 % (24.0-44.0); MEAN CORP HGB 32.4 pg (26-34); MONOCYTES # 0.5 10^3/uL (0.3-0.8); MONOCYTES % 8.3 % (5.0-12.0); NEUTROPHIL # 2.5 10^3/uL (1.8-7.7); NEUTROPHILS % 41.5 % (41.0-85.0); PLATELET COUNT 232 10^3/uL (150-400); RED CELL DISTRIBUTION WIDTH 12.1 % (11.5-14.5)
[2022-12-27 08:44] LABS: CARBON DIOXIDE 26.6 mmol/L (20.0-32)
== END | disposition home or self-care (01) ==
LOC: NPLAB 07:56
PROVIDERS: ATTEND Nurse Practitioner Adult Health
DX: F43.22 Adjustment disorder with anxiety (principal); B00.9 Herpesviral infection, unspecified; E55.9 Vitamin D deficiency, unspecified
CPT/HCPCS: 36415; 80053; 80061; 82306; 84439; 84443; 85025

== ENCOUNTER → 2023-10-10 | Outpatient (CLI) | payer OTHER | END | disposition home or self-care (01) | LOC: RAD 08:07 | PROVIDERS: ATTEND Nurse Practitioner Adult Health | DX: M19.012 Primary osteoarthritis, left shoulder (principal); M75.82 Other shoulder lesions, left shoulder | CPT/HCPCS: 73221 ==

== ENCOUNTER → 2024-02-25 | Outpatient (CLI) | payer OTHER ==
[2024-02-25 07:26] LABS: BASOPHIL % 0.3 % (0.1-1.2); EOSINOPHIL # 0.1 10^3/uL (0.0-0.2); HEMATOCRIT(ML) 42.3 % (36.0-46.0); HEMOGLOBIN 14.1 g/dL (12.0-15.0); LYMPHOCYTES # 2.65 10^3/uL1 (1.0-4.8); LYMPHOCYTES % 43.5 % (24.0-44.0); MEAN CORP HGB 31.8 pg (26-34); MEAN CORP HGB CONCENTRATION 33.3 g/dL (33-36.5); MEAN CORP VOLUME 95.5 fL (78-100); MONOCYTES # 0.4 10^3/uL (0.3-0.8); MONOCYTES % 6.7 % (5.0-12.0); NEUTROPHIL # 2.9 10^3/uL (1.8-7.7); NEUTROPHILS % 47.3 % (41.0-85.0); PLATELET COUNT 236 10^3/uL (150-400); RED BLOOD CELL 4.43 10^6/uL (4.00-5.20); RED CELL DISTRIBUTION WIDTH 11.9 % (11.5-14.5); WHITE BLOOD CELL 6.1 10^3/uL (4.5-11.0)
[2024-02-25 07:28] LABS: +ADD MANUAL DIFF(NO CHRG) NO
[2024-02-25 08:08] LABS: ALBUMIN(ML) 3.9 g/dL (3.4-5.0); ALBUMIN/GLOBULIN RATIO 1.083; ANION GAP 15.7; BUN/CREATININE RATIO 11.25 (10.0-20.0); CALCIUM 8.8 mg/dL (8.4-10.5); CARBON DIOXIDE 24.4 mmol/L (20.0-32); CREATININE SERUM 0.8 mg/dL (0.59-1.40); LDL/HDL RATIO 1.8; POTASSIUM 4.1 mmol/L (3.6-5.2)
== END | disposition home or self-care (01) ==
LOC: LAB 07:13
PROVIDERS: ATTEND Nurse Practitioner Adult Health
DX: E55.9 Vitamin D deficiency, unspecified (principal); F43.22 Adjustment disorder with anxiety
CPT/HCPCS: 36415; 80053; 80061; 82306; 84439; 84443; 85025

== ENCOUNTER → 2025-02-12 | Outpatient (CLI) | payer OTHER ==
[2025-02-12 07:20] LABS: BASOPHIL # 0.0 10^3/uL (0.0-0.1); BASOPHIL % 0.3 % (0.1-1.2); EOSINOPHIL # 0.1 10^3/uL (0.0-0.2); EOSINOPHIL % 2.0 % (0.0-5.0); HEMATOCRIT(ML) 39.3 % (36.0-46.0); IG % 0.20 % (0.00-0.50); LYMPHOCYTES # 3.01 10^3/uL1 (1.0-4.8); LYMPHOCYTES % 45.2 % (24.0-44.0); MEAN CORP HGB 31.6 pg (26-34); MEAN CORP HGB CONCENTRATION 33.1 g/dL (33-36.5); MEAN CORP VOLUME 95.4 fL (78-100); MONOCYTES # 0.4 10^3/uL (0.3-0.8); MONOCYTES % 6.3 % (5.0-12.0); NEUTROPHIL # 3.1 10^3/uL (1.8-7.7); NEUTROPHILS % 46.0 % (41.0-85.0); RED BLOOD CELL 4.12 10^6/uL (4.00-5.20); RED CELL DISTRIBUTION WIDTH 12.3 % (11.5-14.5); WHITE BLOOD CELL 6.7 10^3/uL (4.5-11.0)
[2025-02-12 07:59] LABS: ALANINE AMINOTRANSFERASE(ML) 19.0 U/L (12-78); ALBUMIN(ML) 3.9 g/dL (3.4-5.0); CREATININE SERUM 0.68 mg/dL (0.59-1.40); EST GFR, NON-AA 94.9 (>/=60); LDL/HDL RATIO 1.9
== END | disposition home or self-care (01) ==
LOC: LAB 07:07
PROVIDERS: ATTEND Nurse Practitioner Adult Health
DX: E55.9 Vitamin D deficiency, unspecified (principal); F43.22 Adjustment disorder with anxiety
CPT/HCPCS: 36415; 80053; 80061; 82306; 84439; 84443; 85025